=== PATIENT | male | born 1950 | race Caucasian/White ===

== ENCOUNTER → 2018-05-21 08:27 | Outpatient (POV) | payer MEDICARE, OTHER, SELFPAY | PROVIDERS: Visit Provider Dermatology | DX: Z00.00 Encounter for general adult medical examination without abnormal findings (principal) ==

== ENCOUNTER 2021-09-24 11:06 | Emergency (ER) | payer MEDICARE, OTHER, SELFPAY ==
--- NOTE | 2021-09-24 11:11 | HMH.EDUTC ---
[facility] [place] Clinical Impression: Need for Tdap vaccination Laceration of left index finger Qualifiers: Encounter type: initial encounter Damage to nail status: with damage Foreign body presence: without foreign body Qualified Code(s): S61.311A - Laceration without foreign body of left index finger with damage to nail, initial encounter Disposition: Home, Self-Care Condition on Discharge: Good Instructions: Tetanus, Diphtheria, Pertussis (Tdap) Vaccine, DI for Open Laceration Additional Instructions: Keep the wound clean and dry. Keep a dressing on it if you are going to be getting it dirty. Watch the for signs of infection, such as redness, swelling, drainage, fever. etc. Take tylenol or ibuprofen for pain. Follow up with your regular doctor in 2 to 3 days for a wound recheck. GO TO THE ER FOR ANY WORSENING SYMPTOMS OR CONCERNS. How long can you wait to suture a finger? Your risk of infection increases the longer the wound remains open. Most wounds that require closure should be stitched, stapled, or closed with skin adhesives within 6 to 8 hours after the injury. THIS IS ESPECIALLY SO WHEN IT IS A FINGER WOUND, BECAUSE HANDS AND FINGERS ARE IN CONTACT WITH A LOT OF GERMS. THIS WOUND WILL NEED TO BE LEFT OPEN AND HEAL FROM INSIDE OUT. Prescriptions: Mupirocin [Bactroban 2% Ointment 22gm tube] 1 applicatio TP TID 7 Days #1 gm Transmission Status: Received by [id number] cephALEXin [cephALEXin 500mg capsule] 500 mg PO Q6H 10 Days #40 cap Transmission Status: Received by [id number] Referrals: Provider,Referral, [Primary Care Provider] - Time of Disposition: 12:30 Medical Decision Making - Medical Records Medical records reviewed: No: I reviewed the patient's medical records. - Frank Inquiry Pt receiving controlled substance: No Vital Signs: 09/24/21 11:57 09/24/21 12:44 Temperature 97.9 F 97.9 F Temperature Source Oral Pulse Rate 64 Pulse Rate [Left] 64 Respiratory Rate 18 18 Blood Pressure 131/74 Blood Pressure [Right Arm] 131/74 Blood Pressure Mean [Right Arm] 93 02 Sat by Pulse Oximetry 98 Orders (Tests/Meds): ED MEDICATIONS Discontinued Medications Generic Name Dose Route Start Last Admin Trade Name Freq PRN Reason Stop Dose Admin Tetanus/Diphtheria Toxoids 0.5 ml 09/24/21 12:35 09/24/21 12:36 Tetanus-Diphth Toxoid, Adult 0.5ml Syr IM 09/24/21 12:36 0.5 ml .ONCE ONE Administration Medical Decision Narrative: It has been over 24 hours since his injury. So, it is too late to suture the wounds. [facility] H[place] - General Stated complaint: Sliced finger Time Seen by Provider: 09/24/21 12:00 - History of Present Illness Provider Complaint: He states that he was using battery powered hedge trimmers yesterday when he somehow got the tip of his left index finger into the blade. He recieved 2 lacerations to the tip of that finger. HE denies any other injury. His tetanus immunization is not up to date. This injury happened at around 1000 yesterday morning. He waited to come in because he did not realize the wounds were as bad as they are and he needed a tetanus shot and he thinks he needs antibiotics prescribed. - Related Data Previous Rx's Medication Instructions Recorded Mupirocin [Bactroban 2% Ointment 1 applicatio TP TID 7 Days #1 gm 09/24/21 22gm tube] cephALEXin [cephALEXin 500mg 500 mg PO Q6H 10 Days #40 cap 09/24/21 capsule] Allergies Allergy/AdvReac Type Severity Reaction Status Date / Time No Known Allergies Allergy Verified 09/24/21 12:02 [facility] History - Hepatitis A Screen Attestation statement:: This patient has been screened for Hepatitis A risk factors. I have reviewed the patient's past medical history: Yes Amputation: No Fractures: No - Social History Alcohol Intake: never ROS Obtained: Yes All systems reviewed & no additional complaints - Constitutional
[2021-09-24 11:57] VITALS: BP 131/74; PULSE 64; RESP 18; TEMP 36.6; O2SAT 98; BMI 24.5
[2021-09-24 12:44] VITALS: BP 131/74; PULSE 64; RESP 18; TEMP 36.6
== END 2021-09-24 12:45 | disposition home or self-care (01) ==
PROVIDERS: Emergency Provider Nurse Practitioner Family
DX: S61.311A Laceration without foreign body of left index finger with damage to nail, initial encounter (principal); W29.8XXA Contact with other powered hand tools and household machinery, initial encounter
CPT/HCPCS: 90471; 90714; 99212; G0463